=== PATIENT | male | born 1980 | race Two or more races ===

== ENCOUNTER 2025-04-28 19:07 | Inpatient (IN) ==
--- NOTE | 2025-04-28 19:18 | Emergency Department Note ---
Impression & Plan Hydronephrosis with obstructing calculus, Acute right flank pain, Pain in right testicle ED Provider Note NAME: PHU CLIFTON AGE: 44 SEX: M : 1980 ARRIVES VIA: Ambulance INFORMANT: Patient, ED PROVIDER(S): Rafa Britton DO CHIEF COMPLAINT: Testicle pain HPI: The patient is a 44-year-old male who presented to the emergency department from the [facility] for testicle pain. The patient started having symptoms around 1 PM today. He denies having any vomiting but has had nausea as well as back pain. He states the pain goes into his abdomen and into his leg. He denies having any history of similar episodes in the past. The stull installer line was used to evaluate the patient. He denies having any fever. He denies having any hematuria. ROS: See above HPI for pertinent positives & negatives. A total of 10 systems reviewed and were otherwise negative. PAST MEDICAL HISTORY: See Below PAST SURGICAL HISTORY: See Below FAMILY HISTORY: See Below SOCIAL HISTORY: See Below HOME MEDICATIONS: See Below ALLERGIES: See Below VITALS: See Below PHYSICAL EXAMINATION: GENERAL: The patient is awake and alert. The patient is anxious and uncomfortable. EYES: The conjunctivae are clear. The pupils are round and reactive. EARS, NOSE, MOUTH AND THROAT: The nose is without any evidence of any deformity. NECK: The neck is nontender and supple. RESPIRATORY: Normal respiratory effort is noted there is no evidence of wheezing rhonchi or rales CARDIOVASCULAR: Regular rate and rhythm noted there no murmurs rubs or gallops normal S1 normal S2. GASTROINTESTINAL: The abdomen is distended. There is diffuse tenderness on the right side of the abdomen. There is no specific guarding or rigidity. There was no inguinal masses noted. : Testicles are descended bilaterally. There is tenderness on the right side of the right testicle. There is no erythema. BACK: No midline tenderness or or step-off noted range of motion in flexion extension as well as rotation no signs of muscle spasm noted MUSCULOSKELETAL/EXTREMITIES: There is no evidence of gross deformity full range of motion is noted in the hips and shoulders. SKIN: There is no obvious evidence of any rash. There are no petechiae, pallor or cyanosis noted. NEUROLOGIC: Patient is awake alert and oriented x3 MEDICAL DECISION MAKING: The patient is a 44-year-old male who presented to the emergency department from the [facility] for evaluation of testicular pain. The patient was found to have right flank pain as well. Given the language barrier further laboratory and radiographic studies were obtained to ensure there was no other underlying issues. I discussed the patient's laboratory and radiographic studies with him. Ultimately he was found to have signs of a obstructing ureteral calculus. This is likely the cause of patient's pain. He was treated with pain medication and IV fluids in the emergency department. Given the degree of pain the patient was suffering from I [facility] to evaluate the patient in the emergency department for further management and disposition. Triage Nursing notes reviewed. Prior medical records reviewed Vital Signs: reviewed and remarkable for elevated blood pressure. Differential diagnosis: Etiologies such as appendicitis, diverticulitis, obstruction, inflammatory bowel disease, renal colic, PUD, biliary pathology, pancreatitis, mesenteric ischemia, aortic pathology, infections, genitourinary, UTI, perforated viscus, as well as others were entertained. ER treatment provided: See below Diagnostics interpreted by me: ECG: none Cardiac Monitoring: An order was placed for continuous cardiac monitoring. The monitor shows a rate of 80 bpm with sinus rhythm. Laboratory studies: As stated above and show below. Imaging studies: See below. Radiographic imaging was reviewed by myself Consultation(s): I discussed this case with Dr. Mejia [facility] Past Med/Surg History Problem List (Updated 04/28/25 @ 21:31 by Rafa Britton DO) Pain in right testicle (Acute) Acute right flank pain (Acute) Hydronephrosis with obstructing calculus (Acute) Surgical History History of hemorrhoidectomy Social History Smoking Status: Never smoker Communication Tools: IPad Feels Safe at Home: Yes Allergies Allergies Allergy/AdvReac Type Severity Reaction Status Date / Time No Known Allergies Allergy Verified 04/28/25 20:32 Home Meds Home Medications Medication Instructions Recorded Confirmed No Known Home Medications 04/28/25 04/28/25 Results & Data (ED) Vital Signs Vital Signs - 24 hr 04/28/25 19:11 04/28/25 19:13 04/28/25 19:13 Temperature 37.3 C Temperature Source Oral Pulse Rate 68 69 Pulse Rate [Apical] Pulse Rate from SpO2 Sensor Respiratory Rate 16 Respiratory Effort / Characteristics Non-Labored Spontaneous Respiratory Depth Normal Blood Pressure 160/97 H 160/97 H Blood Pressure [Right Arm] Blood Pressure Mean 118 114 Blood Pressure Mean [Right Arm] Pulse Oximetry 97 Oxygen Delivery Method Room Air Sepsis Recent Fever Within 48 Hours No Sepsis New/Unexplained Change in Mental Status No Sepsis Action Taken by Nursing No Action Required 04/28/25 19:13 04/28/25 19:13 04/28/25 19:13 Temperature Temperature Source Pulse Rate Pulse Rate [Apical] Pulse Rate from SpO2 Sensor Respiratory Rate Respiratory Effort / Characteristics Respiratory Depth Blood Pressure 160/97 H 160/97 H 160/97 H Blood Pressure [Right Arm] Blood Pressure Mean 114 114 114 Blood Pressure Mean [Right Arm] Pulse Oximetry Oxygen Delivery Method Sepsis Recent Fever Within 48 Hours Sepsis New/Unexplained Change in Mental Status Sepsis Action Taken by Nursing 04/28/25 19:30 04/28/25 19:39 04/28/25 20:23 Temperature Temperature Source Pulse Rate 77 71 Pulse Rate [Apical] Pulse Rate from SpO2 Sensor Respiratory Rate 12 19 Respiratory Effort / Characteristics Respiratory Depth Blood Pressure 169/122 H Blood Pressure [Right Arm] Blood Pressure Mean 138 Blood Pressure Mean [Right Arm] Pulse Oximetry Oxygen Delivery Method Sepsis Recent Fever Within 48 Hours Sepsis New/Unexplained Change in Mental Status Sepsis Action Taken by Nursing 04/28/25 20:23 04/28/25 20:23 04/28/25 20:23 Temperature Temperature Source Pulse Rate Pulse Rate [Apical] Pulse Rate from SpO2 Sensor Respiratory Rate Respiratory Effort / Characteristics Respiratory Depth Blood Pressure 169/122 H 169/122 H 169/122 H Blood Pressure [Right Arm] Blood Pressure Mean 138 138 138 Blood Pressure Mean [Right Arm] Pulse Oximetry Oxygen Delivery Method Sepsis Recent Fever Within 48 Hours Sepsis New/Unexplained Change in Mental Status Sepsis Action Taken by Nursing 04/28/25 20:23 04/28/25 20:24 04/28/25 20:30 Temperature Temperature Source Pulse Rate 82 80 Pulse Rate [Apical] Pulse Rate from SpO2 Sensor 80 80 Respiratory Rate 19 21 Respiratory Effort / Characteristics Respiratory Depth Blood Pressure 169/122 H Blood Pressure [Right Arm] Blood Pressure Mean 138 Blood Pressure Mean [Right Arm] Pulse Oximetry 98 99 Oxygen Delivery Method Sepsis Recent Fever Within 48 Hours Sepsis New/Unexplained Change in Mental Status Sepsis Action Taken by Nursing 04/28/25 21:01 Temperature Temperature Source Pulse Rate Pulse Rate [Apical] 80 Pulse Rate from SpO2 Sensor Respiratory Rate 16 Respiratory Effort / Characteristics Respiratory Depth Blood Pressure Blood Pressure [Right Arm] 141/73 H Blood Pressure Mean Blood Pressure Mean [Right Arm] 95 Pulse Oximetry Oxygen Delivery Method Sepsis Recent Fever Within 48 Hours Sepsis New/Unexplained Change in Mental Status Sepsis Action Taken by Half-Way Medications Current Medication List: was personally reviewed by me Laboratory Data Attestation: I reviewed the patient's lab results. 04/28/25 19:15 04/28/25 19:15 Lab Results 04/28/25 04/28/25 Range/Units 19:15 20:53 WBC 13.53 H (4.8-10.8) K/ul RBC 5.17 (4.70-6.10) M/uL Hgb 16.2 (14.0-18.0) g/dL Hct 43.8 (42.0-52.0) % MCV 84.7 (80.0-100.0) fL MCH 31.3 (25.0-34.0) pg MCHC 37.0 H (32.0-36.0) g/dL RDW Std Deviation 36.5 (36.4-46.3) fL RDW Coeff of Shaan 11.9 (11.5-14.5) % Plt Count 228 (130-400) K/uL MPV 9.6 (9.4-12.4) fL Immature Gran % (Auto) 0.3 % Neut % (Auto) 85.8 % Lymph % (Auto) 8.8 % [place] % (Auto) 4.1 % Eos % (Auto) 0.4 % Baso % (Auto) 0.6 % Neut # (Auto) 11.61 H (1.40-6.50) K/uL Lymph # (Auto) 1.19 L (1.20-3.40) K/uL [place] # (Auto) 0.56 (0.11-0.59) K/uL Eos # (Auto) 0.05 (0.00-0.50) K/uL Baso # (Auto) 0.08 (0.00-0.20) K/uL Immature Gran # (Auto) 0.04 (0.01-0.20) K/uL Sodium 133 L (136-145) mmol/L Potassium 3.6 (3.5-5.1) mmol/L Chloride 99 (98-107) mmol/L Carbon Dioxide 24 (21-32) mmol/L Anion Gap 10 (3-11) BUN 18 (6-23) mg/dl Creatinine 0.96 (0.6-1.4) mg/dl Est Cr Clr Drug Dosing 99.3 ml/min eGFR 98.72 BUN/Creatinine Ratio 18.8 (10-20) Glucose 152 H (70-99(Fasting)) mg/dl Calcium 9.5 (8.6-10.3) mg/dl Total Bilirubin 1.2 H (0.2-1.0) mg/dl AST 19 (13-39) U/L ALT 21 (7-52) U/L Alkaline Phosphatase 72 (34-104) U/L Total Protein 7.8 (6.0-8.3) gm/dl Albumin 4.3 (3.4-5.0) gm/dl Globulin 3.5 (2.5-4.0) gm/dl Albumin/Globulin Ratio 1.2 (0.9-2) Lipase 38 (11-82) U/L Urine Comment Administered Medications Sodium Chloride (Nss) 1,000 mls @ 50 mls/hr IV .Q20H ONE Stop: 04/29/25 16:28 Last Admin: 04/28/25 20:33 Dose: 999 mls/hr Documented By: VANDANA Discontinued Medications Sodium Chloride (Nss) 500 mls @ 999 mls/hr IV .Q31M STA Stop: 04/28/25 19:44 Last Infusion: 04/28/25 20:18 Dose: Infused Documented By: Admin: 04/28/25 19:23 Dose: 999 mls/hr Documented By: VANDANA Ioversol (Optiray 320 100ml) 93 ml IV ONCE ONE Stop: 04/28/25 20:19 Last Admin: 04/28/25 20:18 Dose: 93 ml Documented By: SOPHIA Ketorolac Tromethamine (Ketorolac Tromethamine 15 Mg/Ml Vial) 10 mg IV NOW ONE Stop: 04/28/25 20:29 Last Admin: 04/28/25 20:33 Dose: 10 mg Documented By: VANDANA Morphine Sulfate (Morphine Sulfate 4 Mg/Ml 1 Ml Carp\Vial) 4 mg IV NOW STA Stop: 04/28/25 19:15 Last Admin: 04/28/25 19:23 Dose: 4 mg Documented By: VANDANA Morphine Sulfate (Morphine Sulfate 4 Mg/Ml 1 Ml Carp\Vial) 4 mg IV NOW STA Stop: 04/28/25 20:29 Last Admin: 04/28/25 20:33 Dose: 4 mg Documented By: VANDANA Ondansetron HCl (Ondansetron Inj 2 Mg/Ml 2 Ml Vial) 4 mg IV NOW STA Stop: 04/28/25 19:15 Last Admin: 04/28/25 19:23 Dose: 4 mg Documented By: VANDANA Imaging Data Attestation: I personally reviewed and interpreted this imaging study as follows: My Impression: CT of the abdomen and pelvis was obtained in the emergency department. My interpretation is no free air or definite bowel obstruction, there was a right ureteral calculus noted, final report below. Radiologist's Impression: Scrotum Ultrasound 04/28/25 19:14 Exam(s): US SCROTAL EXAM: US Scrotum CLINICAL HISTORY: Reason for exam: right sided pain. OTHER: Other Notes: Non specific right sided testicular pain. Rt testicle 4.0 x 2.2 x 2.6 cm w/flow. small hydrocele. Lt testicle 3.9 x 2.2 x 2.8 cm w/flow. Larger hydrocele with debris. Epi head cyst 0.2 cm. TECHNIQUE: Real-time ultrasound of the scrotum with color Doppler and image documentation. COMPARISON: No relevant prior studies available. FINDINGS: Right testicle: Unremarkable. No mass. No torsion. Left testicle: Unremarkable. No mass. No torsion. Epididymides: Unremarkable. Scrotum: Left hydrocele with internal debris. Small right hydrocele. IMPRESSION: Bilateral hydroceles [id number] Electronically signed by: Isreal Kline MD 04/28/25 20:31 PM Abdomen/Pelvis CT 04/28/25 19:15 Exam(s): CT ABDOMEN + PELVIS With Contrast IV Amt: 93ML OPTIRAY 320 EXAM: CT Abdomen and Pelvis With Intravenous Contrast CLINICAL HISTORY: Reason for exam: right flank pain. TECHNIQUE: Axial computed tomography images of the abdomen and pelvis with intravenous contrast. CTDI is 25.45 mGy and DLP is 1389.29 mGy-cm. Automated exposure control was utilized for the study. A dose lowering technique was utilized adhering to the principles of ALARA. CONTRAST: Patient received 93ML OPTIRAY 320 of IV contrast COMPARISON: No relevant prior studies available. FINDINGS: Lung bases: Unremarkable. No mass. No consolidation. ABDOMEN: Liver: Hepatic steatosis. Gallbladder and bile ducts: Unremarkable. No calcified stones. No ductal dilation. Pancreas: Unremarkable. No mass. No ductal dilation. Spleen: Unremarkable. No splenomegaly. Adrenals: Unremarkable. No mass. Kidneys and ureters: Right-sided hydroureteronephrosis secondary to a 0.6 cm proximal right ureteral calculus with periureteral and perinephric stranding. Stomach and bowel: Unremarkable. No obstruction. No mucosal thickening. PELVIS: Appendix: No findings to suggest acute appendicitis. Bladder: Unremarkable. No mass. Reproductive: Unremarkable as visualized. ABDOMEN and PELVIS: Intraperitoneal space: Unremarkable. No free air. No significant fluid collection. Bones/joints: No acute fracture. No dislocation. Soft tissues: Unremarkable. Vasculature: Unremarkable. No abdominal aortic aneurysm. Lymph nodes: Unremarkable. No enlarged lymph nodes. IMPRESSION: Right-sided obstructive uropathy secondary to a 0.5 cm proximal right ureteral calculus. Electronically signed by: Isreal Kline MD 04/28/25 21:04 PM Discharge Plan Visit Data Chief Complaint: Testicular Pain Stated Complaint: L Testicular Pain, Abdominal Pain, UTI ED Provider: Rafa Britton Discharge Problem: Hydronephrosis with obstructing calculus, Acute right flank pain, Pain in right testicle Patient Disposition: Being Evaluated by Hospitalist Condition: Fair Forms Stand Alone Forms: My [employer] Prescriptions Prescriptions: No Action No Known Home Medications Referrals Referrals: PCP,NO [Physician] -
[2025-04-28] MEDS: SODIUM CHLORIDE 0.9% 500 ML IV STA (19:23)
[2025-04-28] MEDS: ONDANSETRON INJ 2 MG/ML 2 ML VIAL IV STA (19:23)
[2025-04-28] MEDS: MoRPHine SULFATE 4 MG/ML 1 ML CARP\\VIAL IV STA ×2 (19:23→20:33)
[2025-04-28 19:29] LABS: Hematocrit (blood only) 43.8 % (42.0-52.0); Hemoglobin 16.2 g/dL (14.0-18.0); Immature Granulocytes # (auto) 0.04 K/uL (0.01-0.20); Immature Granulocytes % (auto) 0.3 %; Mean Corpuscular Hemoglobin 31.3 pg (25.0-34.0); Mean Corpuscular Volume 84.7 fL (80.0-100.0); Platelet Count 228 K/uL (130-400); RDW Standard Deviation 36.5 fL (36.4-46.3); Red Blood Count 5.17 M/uL (4.70-6.10); White Blood Count 13.53 K/ul (4.8-10.8)
[2025-04-28 19:47] LABS: Alanine Aminotransferase 21.0 U/L (7-52); Albumin Globulin Ratio 1.2 (0.9-2); Albumin Level 4.3 gm/dl (3.4-5.0); Alkaline Phosphatase 72.0 U/L (34-104); Anion Gap 10.0 (3-11); Bilirubin,Total 1.2 mg/dl (0.2-1.0); Blood Urea Nitrogen 18.0 mg/dl (6-23); Calcium 9.5 mg/dl (8.6-10.3); Carbon Dioxide 24.0 mmol/L (21-32); Chloride 99.0 mmol/L (98-107); Creatinine Clr Calc Pharmacy 99.3 ml/min; Globulin 3.5 gm/dl (2.5-4.0); Glucose 152.0 mg/dl (70-99(Fasting)); Lipase 38.0 U/L (11-82); Potassium 3.6 mmol/L (3.5-5.1); Sodium 133.0 mmol/L (136-145); Total Protein 7.8 gm/dl (6.0-8.3)
[2025-04-28] MEDS: OPTIRAY 320 100ml IV ONE (20:18)
--- NOTE | 2025-04-28 20:32 | Ultrasound Report ---
Exam(s): US SCROTAL EXAM: US Scrotum CLINICAL HISTORY: Reason for exam: right sided pain. OTHER: Other Notes: Non specific right sided testicular pain. Rt testicle 4.0 x 2.2 x 2.6 cm w/flow. small hydrocele. Lt testicle 3.9 x 2.2 x 2.8 cm w/flow. Larger hydrocele with debris. Epi head cyst 0.2 cm. TECHNIQUE: Real-time ultrasound of the scrotum with color Doppler and image documentation. COMPARISON: No relevant prior studies available. FINDINGS: Right testicle: Unremarkable. No mass. No torsion. Left testicle: Unremarkable. No mass. No torsion. Epididymides: Unremarkable. Scrotum: Left hydrocele with internal debris. Small right hydrocele. IMPRESSION: Bilateral hydroceles [id number] Electronically signed by: Isreal Kline MD 04/28/25 20:31 PM
[2025-04-28] MEDS: SODIUM CHLORIDE 0.9% 1,000 ML IV ONE (20:33)
[2025-04-28] MEDS: KETOROLAC TROMETHAMINE 15 MG/ML VIAL IV ONE (20:33)
[2025-04-28] MEDS ORDERED: PROMETHAZINE 6.25 MG/50.25 ML BAG IV PRN (20:37)
[2025-04-28] MEDS ORDERED: MoRPHine SULFATE 4 MG/ML 1 ML CARP\\VIAL IV PRN (20:37)
--- NOTE | 2025-04-28 21:06 | CT Scan Report ---
Exam(s): CT ABDOMEN + PELVIS With Contrast IV Amt: 93ML OPTIRAY 320 EXAM: CT Abdomen and Pelvis With Intravenous Contrast CLINICAL HISTORY: Reason for exam: right flank pain. TECHNIQUE: Axial computed tomography images of the abdomen and pelvis with intravenous contrast. CTDI is 25.45 mGy and DLP is 1389.29 mGy-cm. Automated exposure control was utilized for the study. A dose lowering technique was utilized adhering to the principles of ALARA. CONTRAST: Patient received 93ML OPTIRAY 320 of IV contrast COMPARISON: No relevant prior studies available. FINDINGS: Lung bases: Unremarkable. No mass. No consolidation. ABDOMEN: Liver: Hepatic steatosis. Gallbladder and bile ducts: Unremarkable. No calcified stones. No ductal dilation. Pancreas: Unremarkable. No mass. No ductal dilation. Spleen: Unremarkable. No splenomegaly. Adrenals: Unremarkable. No mass. Kidneys and ureters: Right-sided hydroureteronephrosis secondary to a 0.6 cm proximal right ureteral calculus with periureteral and perinephric stranding. Stomach and bowel: Unremarkable. No obstruction. No mucosal thickening. PELVIS: Appendix: No findings to suggest acute appendicitis. Bladder: Unremarkable. No mass. Reproductive: Unremarkable as visualized. ABDOMEN and PELVIS: Intraperitoneal space: Unremarkable. No free air. No significant fluid collection. Bones/joints: No acute fracture. No dislocation. Soft tissues: Unremarkable. Vasculature: Unremarkable. No abdominal aortic aneurysm. Lymph nodes: Unremarkable. No enlarged lymph nodes. IMPRESSION: Right-sided obstructive uropathy secondary to a 0.5 cm proximal right ureteral calculus. Electronically signed by: Isreal Kline MD 04/28/25 21:04 PM
--- NOTE | 2025-04-28 21:19 | History & Physical Report ---
Date of Service April 28, 2025 Assessment & Plan (1) Hydronephrosis with obstructing calculus: Plan: Assessment and plan below following discussion of case with ED provider and reviewing patient history/pertinent normal/abnormal diagnostic test results. Obstructive uropathy secondary to kidney stone No sepsis for now Bilateral hydrocele Situational hypertension Hyperglycemia rule out DM Admit to MedSurg Analgesia Flomax trial Strain urine Urology consult re: kidney stone, bilateral hydrocele N.p.o. after midnight in anticipation of procedure Check hemoglobin A1c with a.m. labs DVT prophylaxis. SCDs re: possible procedure Full code Text document was generated using [employer] voice recognition software. It may contain grammatical or spelling errors. Kindly contact undersigned for clarification of any documentation item in question. History of Present Illness Chief Complaint: Abdominal pain Primary Care Provider: [facility] History obtained from patient and records. History obtained from patient via online cath laboratory technician line. No significant medical history. Patient is a resident of [place] who was admitted at the [facility] 4 days ago. This afternoon, patient noted achy lower abdominal pain going to his scrotum. No fever, no chills. No hematuria. No chest pain, no SOB. No headache. No prior episodes. SBP 1 50-1 60s as per medical staff. 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, [place] [employer] Allergies Allergy/AdvReac Type Severity Reaction Status Date / Time No Known Allergies Allergy Verified 04/28/25 20:32 Home Medications Medication Instructions Recorded Confirmed Type No Known Home Medications 04/28/25 04/28/25 History Past Med/Surg History Problem List (Updated 04/28/25 @ 21:31 by Rafa Britton DO) Pain in right testicle (Acute) Acute right flank pain (Acute) Hydronephrosis with obstructing calculus (Acute) Surgical History History of hemorrhoidectomy Social History Smoking Status: Former smoker Hx Alcohol Use: Yes Alcohol type: beer Hx Substance Use: No Preferred Language: Other Communication Ability: interpret Communication Tools: IPad Senior Media Planner Required: Yes Beliefs That Will Affect Care: None Current Living Situation: Other Current Living Situation Comment: pt declined Other Information That Helps Us Care for You: No Feels Safe at Home: Yes Safety Concerns: Feels Safe At This Time Assistive Devices: None Review of Systems Review of Systems: As per HPI, all other systems reviewed and negative Physical Exam Physical Exam: GENERAL: Slightly uncomfortable, pleasant, no respiratory distress SKIN: Normal color, warm HEENT: [place] palpebral conjunctivae, no ptosis, dry buccal mucosa NECK : Supple, no tenderness CHEST : CTA, no tenderness HEART : RRR, no obvious murmurs ABDOMEN: Some distention, hypogastric tenderness EXTREMITIES : No LE swelling/tenderness, palpable pulses, no other conspicuous deformities noted NEUROLOGIC : Coherent, no facial asymmetry, no other gross focality Results & Data Results & Data Vital Signs (Past 12 Hours) Vital Signs Temp Pulse Pulse Resp BP BP Pulse Ox 04/28/25 21:01 80 16 141/73 H 04/28/25 20:30 80 21 99 04/28/25 20:24 82 19 98 04/28/25 20:23 169/122 H 04/28/25 20:23 169/122 H 04/28/25 20:23 169/122 H 04/28/25 20:23 169/122 H 04/28/25 20:23 169/122 H 04/28/25 19:39 71 19 04/28/25 19:30 77 12 04/28/25 19:13 160/97 H 04/28/25 19:13 160/97 H 04/28/25 19:13 160/97 H 04/28/25 19:13 160/97 H 04/28/25 19:13 69 04/28/25 19:11 37.3 C 68 16 160/97 H 97 O2 Del Method 04/28/25 21:01 04/28/25 20:30 04/28/25 20:24 04/28/25 20:23 04/28/25 20:23 04/28/25 20:23 04/28/25 20:23 04/28/25 20:23 04/28/25 19:39 04/28/25 19:30 04/28/25 19:13 04/28/25 19:13 04/28/25 19:13 04/28/25 19:13 04/28/25 19:13 04/28/25 19:11 Room Air Laboratory Results Laboratory Results WBC 13.53 K/ul (4.8-10.8) H 04/28/25 19:15 RBC 5.17 M/uL (4.70-6.10) 04/28/25 19:15 Hgb 16.2 g/dL (14.0-18.0) 04/28/25 19:15 Hct 43.8 % (42.0-52.0) 04/28/25 19:15 MCV 84.7 fL (80.0-100.0) 04/28/25 19:15 MCH 31.3 pg (25.0-34.0) 04/28/25 19:15 MCHC 37.0 g/dL (32.0-36.0) H 04/28/25 19:15 RDW Std Deviation 36.5 fL (36.4-46.3) 04/28/25 19:15 RDW Coeff of Shaan 11.9 % (11.5-14.5) 04/28/25 19:15 Plt Count 228 K/uL (130-400) 04/28/25 19:15 MPV 9.6 fL (9.4-12.4) 04/28/25 19:15 Immature Gran % (Auto) 0.3 % 04/28/25 19:15 Neut % (Auto) 85.8 % 04/28/25 19:15 Lymph % (Auto) 8.8 % 04/28/25 19:15 [place] % (Auto) 4.1 % 04/28/25 19:15 Eos % (Auto) 0.4 % 04/28/25 19:15 Baso % (Auto) 0.6 % 04/28/25 19:15 Neut # (Auto) 11.61 K/uL (1.40-6.50) H 04/28/25 19:15 Lymph # (Auto) 1.19 K/uL (1.20-3.40) L 04/28/25 19:15 [place] # (Auto) 0.56 K/uL (0.11-0.59) 04/28/25 19:15 Eos # (Auto) 0.05 K/uL (0.00-0.50) 04/28/25 19:15 Baso # (Auto) 0.08 K/uL (0.00-0.20) 04/28/25 19:15 Immature Gran # (Auto) 0.04 K/uL (0.01-0.20) 04/28/25 19:15 Sodium 133 mmol/L (136-145) L 04/28/25 19:15 Potassium 3.6 mmol/L (3.5-5.1) 04/28/25 19:15 Chloride 99 mmol/L (98-107) 04/28/25 19:15 Carbon Dioxide 24 mmol/L (21-32) 04/28/25 19:15 Anion Gap 10 (3-11) 04/28/25 19:15 BUN 18 mg/dl (6-23) 04/28/25 19:15 Creatinine 0.96 mg/dl (0.6-1.4) 04/28/25 19:15 Est Cr Clr Drug Dosing 99.3 ml/min 04/28/25 19:15 eGFR 98.72 04/28/25 19:15 BUN/Creatinine Ratio 18.8 (10-20) 04/28/25 19:15 Glucose 152 mg/dl (70-99(Fasting)) H 04/28/25 19:15 Calcium 9.5 mg/dl (8.6-10.3) 04/28/25 19:15 Total Bilirubin 1.2 mg/dl (0.2-1.0) H 04/28/25 19:15 AST 19 U/L (13-39) 04/28/25 19:15 ALT 21 U/L (7-52) 04/28/25 19:15 Alkaline Phosphatase 72 U/L (34-104) 04/28/25 19:15 Total Protein 7.8 gm/dl (6.0-8.3) 04/28/25 19:15 Albumin 4.3 gm/dl (3.4-5.0) 04/28/25 19:15 Globulin 3.5 gm/dl (2.5-4.0) 04/28/25 19:15 Albumin/Globulin Ratio 1.2 (0.9-2) 04/28/25 19:15 Lipase 38 U/L (11-82) 04/28/25 19:15 Urine Comment 04/28/25 20:53 Impressions Scrotum Ultrasound 04/28/25 19:14 Exam(s): US SCROTAL EXAM: US Scrotum CLINICAL HISTORY: Reason for exam: right sided pain. OTHER: Other Notes: Non specific right sided testicular pain. Rt testicle 4.0 x 2.2 x 2.6 cm w/flow. small hydrocele. Lt testicle 3.9 x 2.2 x 2.8 cm w/flow. Larger hydrocele with debris. Epi head cyst 0.2 cm. TECHNIQUE: Real-time ultrasound of the scrotum with color Doppler and image documentation. COMPARISON: No relevant prior studies available. FINDINGS: Right testicle: Unremarkable. No mass. No torsion. Left testicle: Unremarkable. No mass. No torsion. Epididymides: Unremarkable. Scrotum: Left hydrocele with internal debris. Small right hydrocele. IMPRESSION: Bilateral hydroceles [id number] Electronically signed by: Isreal Kline MD 04/28/25 20:31 PM Abdomen/Pelvis CT 04/28/25 19:15 Exam(s): CT ABDOMEN + PELVIS With Contrast IV Amt: 93ML OPTIRAY 320 EXAM: CT Abdomen and Pelvis With Intravenous Contrast CLINICAL HISTORY: Reason for exam: right flank pain. TECHNIQUE: Axial computed tomography images of the abdomen and pelvis with intravenous contrast. CTDI is 25.45 mGy and DLP is 1389.29 mGy-cm. Automated exposure control was utilized for the study. A dose lowering technique was utilized adhering to the principles of ALARA. CONTRAST: Patient received 93ML OPTIRAY 320 of IV contrast COMPARISON: No relevant prior studies available. FINDINGS: Lung bases: Unremarkable. No mass. No consolidation. ABDOMEN: Liver: Hepatic steatosis. Gallbladder and bile ducts: Unremarkable. No calcified stones. No ductal dilation. Pancreas: Unremarkable. No mass. No ductal dilation. Spleen: Unremarkable. No splenomegaly. Adrenals: Unremarkable. No mass. Kidneys and ureters: Right-sided hydroureteronephrosis secondary to a 0.6 cm proximal right ureteral calculus with periureteral and perinephric stranding. Stomach and bowel: Unremarkable. No obstruction. No mucosal thickening. PELVIS: Appendix: No findings to suggest acute appendicitis. Bladder: Unremarkable. No mass. Reproductive: Unremarkable as visualized. ABDOMEN and PELVIS: Intraperitoneal space: Unremarkable. No free air. No significant fluid collection. Bones/joints: No acute fracture. No dislocation. Soft tissues: Unremarkable. Vasculature: Unremarkable. No abdominal aortic aneurysm. Lymph nodes: Unremarkable. No enlarged lymph nodes. IMPRESSION: Right-sided obstructive uropathy secondary to a 0.5 cm proximal right ureteral calculus. Electronically signed by: Isreal Kline MD 04/28/25 21:04 PM
[2025-04-28] MEDS ORDERED: LORazepam 0.5 MG TAB PO PRN (21:28)
[2025-04-28] MEDS: TAMSULOSIN HCL 0.4 MG CAP PO STA (21:42)
[2025-04-28 21:44] LABS: Appearance Urine Turbid (Clear); Bacteria Urine Automated None Seen (None Seen); Cast Urine Automated 0-2 /lpf (0-2); Epithelial Cell Urine Auto 0-2 /hpf (0-2); Glucose Urine UA Negative (Negative); RBC Urine Automated >20 /hpf (0-2)
[2025-04-28] MEDS ORDERED: POLYETHYLENE (MIRALAX) 17 GM PACK PO PRN (21:57)
[2025-04-28] MEDS: DOCUSATE SODIUM/SENNA 50/8.6MG TAB PO SCH (22:09)
[2025-04-29 07:19] LABS: Hematocrit (blood only) 39.9 % (42.0-52.0); Hemoglobin 14.1 g/dL (14.0-18.0); Immature Granulocytes # (auto) 0.01 K/uL (0.01-0.20); Immature Granulocytes % (auto) 0.1 %; Mean Corpuscular Hemoglobin 30.2 pg (25.0-34.0); Mean Corpuscular Volume 85.4 fL (80.0-100.0); Platelet Count 205 K/uL (130-400); RDW Standard Deviation 37.8 fL (36.4-46.3); Red Blood Count 4.67 M/uL (4.70-6.10); White Blood Count 7.96 K/ul (4.8-10.8)
[2025-04-29 07:40] LABS: Anion Gap 9.0 (3-11); Blood Urea Nitrogen 14.0 mg/dl (6-23); Calcium 8.8 mg/dl (8.6-10.3); Carbon Dioxide 27.0 mmol/L (21-32); Chloride 103.0 mmol/L (98-107); Creatinine Clr Calc Pharmacy 112.5 ml/min; Glucose 99.0 mg/dl (70-99(Fasting)); Potassium 3.4 mmol/L (3.5-5.1); Sodium 139.0 mmol/L (136-145)
[2025-04-29] MEDS ORDERED: MoRPHine SULFATE 4 MG/ML 1 ML CARP\\VIAL IV PRN (08:06)
[2025-04-29 08:36] LABS: Hemoglobin A1C 5.7 % (4.5-5.6)
[2025-04-29] MEDS: POTASSIUM CHLORIDE 10 MEQ TABCR PO ONE (09:00)
[2025-04-29] MEDS: NSS + 20MEQ KCL 20 MEQ/1,000 ML BAG IV SCH (09:01)
--- NOTE | 2025-04-29 12:59 | Urology Consultation ---
Date of Consultation April 29, 2025 Assessment & Plan (1) Hydronephrosis with obstructing calculus: (2) Acute right flank pain: (3) Pain in right testicle: Plan The patient admitted with severe pain secondary to obstructive stone approximately 6 mm stone in the proximal/mid ureter and significant perinephric stranding. Patient originally from [facility] and has limited [place] language/understanding. A translation service was utilized through an iPad. Patient independently assessed, examined, interviewed, and evaluated. Patient's vitals and labs were all reviewed. Pertinent values in the HPI and plan section. White count 7.96. Hemoglobin 14.1. Creatinine 0.92. Vitals include blood pressure 104/62 pulse 75 respirations 14 temperature 36.8. Patient has remained afebrile. Oxygen saturation 95% on room air. Imaging was reviewed interpreted by myself. Significant moderate to severe perinephric stranding with inflammation along the ureter and moderate to severe hydronephrosis. Stone appears to be in the mid/proximal ureter. Appears to cause considerable obstructive issues. Otherwise agree with read. Vitals were reviewed. Patient additionally had undergone scrotal ultrasound which found bilateral hydroceles. Discussed findings extensively with patient. Patient is currently detained. The guards from the facility were also present and updated with the findings and the plan. Reviewed with nurse nursing. Additionally coordinated with the translation service. Patient's complicated medical and surgical history was reviewed and summarized above. Patient's surgical, medical, social, and family history were all reviewed with pertinent values as above. Discussed patient's current diagnosis as well as concerns and issues. Reviewed different options moving forward. Discussed potential risks and benefits as well as possible options and concerns. Reviewed potential surgical options and interventions. Discussed potential issues and concerns related to intervention. Risk and benefits were discussed extensively with patient and any available family. Discussed potential risks related to anesthesia. Discussed risks of bleeding infection and injury. Discussed concerns related to the degree of obstruction and concerns with possible obstruction. Would be approximately 50-50 chance of passage spontaneously. Patient is not experiencing major bleeding. Does have severe episodes of pain. Did discuss maximum expulsion therapy and supportive care for attempted passage. The patient is unable to pass a stone may need to consider moving forward with intervention. Additionally based on the degree of hydronephrosis and perinephr ic stranding may need to consider moving forward with intervention if stone is not mobilizing or changing position. Will be a potential risk for significant infection with obstruction. Could consider possible stent placement for stone treatment based on patient's findings. Reviewed possible surgical concerns and issues. Reviewed options moving forward. Reviewed options possibly move forward with stone treatment depending on patient's clinical course. If patient does develop severe fevers or other issues that would require urgent or emergent stent he may need to consider moving forward that alone however if possible would consider possibly trying to treat the stone. Will plan to observe with reassessment as needed moving forward. Patient complicated medical and surgical history is reviewed and summarized above all imaging was reviewed all labs and vitals reviewed with pertinent positive negatives in HPI or plan section. History of Present Illness Attending Physician: Aron Alarcon MD History of Present Illness New consultation for patient with stone, discomfort, obstruction, and ill feelings. Patient from [facility]. Does be very limited in [place]. A translating device was utilized for the patient encounter. Patient developed sudden onset of pain into the testicle. Was additionally having discomfort in the abdomen and flank going down and radiating into groin and back in waves comes and goes. Can be severe at times. Patient has never had stones before but has had pain in a similar fashion. Has occurred in the abdomen in the past. Discussed and reviewed patient's family history for any history of stone disease. No known history. Also, discussed patient's medical surgery history especially related to any history of urinary issues or stone disease. Patient was admitted and is undergoing observation. Allergies Allergy/AdvReac Type Severity Reaction Status Date / Time No Known Allergies Allergy Verified 04/28/25 20:32 Home Medications Medication Instructions Recorded Confirmed Type No Known Home Medications 04/28/25 04/28/25 History Patient History Surgical History History of hemorrhoidectomy Social History Smoking Status: Former smoker Hx Alcohol Use: Yes Alcohol type: beer Hx Substance Use: No Preferred Language: Other Communication Ability: interpret Communication Tools: IPad [place] Polisher Operator Required: Yes Beliefs That Will Affect Care: None Current Living Situation: Other Current Living Situation Comment: pt declined Other Information That Helps Us Care for You: No Feels Safe at Home: Yes Safety Concerns: Feels Safe At This Time Assistive Devices: None Review of Systems Review of Systems: All systems reviewed & are unremarkable except as noted in HPI & below Physical Exam Physical Exam: General: Alert and oriented x 3 in no acute distress. Restrained HEENT: Normocephalic Atraumatic. Inspection normal. Cranial Nerves 2-12 Grossly intact. Nares are clear. Neck is supple. Normal inspection of face. Normal inspection of neck. Neurologic: No deficits on inspection. Baseline for motor function and sensory. Psychologic: Normal affect. Respiratory: Nonlabored. No use of accessory muscles. No tachypnea or dyspnea. Cardiovascular: No tachycardia Skin: [place] and Dry. No rashes or visible lesions. Extremities: Moving without issues. No motor deficits on inspection Lymphatics: No edema Abdomen: Soft Non-distended. No rebound or guarding. Results & Data Vital Signs (Past 12 Hours) Vital Signs Temp Pulse Resp BP Pulse Ox O2 Del Method 04/29/25 07:17 36.8 C 75 14 104/62 95 Room Air PG Care Time/CCT Total # of Minutes Spent Total Time Spent with Patient: Total time spent is greater than 50% in coordination of care (as documented) at patient's floor/unit and/or counseling patient: Coding Level of Care Code 88752 OFFICE CONSULT LVL Diagnoses Hydronephrosis with obstructing calculus N13.2 Acute right flank pain R10.A1 Pain in right testicle N50.811
[2025-04-29] MEDS ORDERED: cefTRIAXone SODIUM 1,000 MG/50 ML BAG IV SCH (13:15)
[2025-04-29] MEDS: cefTRIAXone SODIUM 2,000 MG/50 ML BAG IV SCH (14:02)
--- NOTE | 2025-04-29 14:42 | Hospitalist Progress Note ---
Date of Service April 29, 2025 Assessment & Plan (1) Hydronephrosis with obstructing calculus: Plan: Right Ureteral calculus Obstructive uropathy --CT ABD:Right-sided obstructive uropathy secondary to a 0.5 cm proximal right ureteral calculus. Continue IV fluids, Flomax Empirically on IV Rocephin Appreciate urology input N.p.o. after midnight for definitive stone treatment Strain urine Bilateral hydrocele Follow-up as outpatient Prediabetes HbA1c 5.7 Situational hypertension Likely due to pain Monitor blood pressure DVT Px: SCDs re: possible procedure CODE STATUS Full code Admission and Anticipated Discharge Date Admission Date: April 28, 2025 Subjective Patient is seen and examined at bedside Difficult historian due to language barrier Denies any hematuria, flank pain, nausea, vomiting, chest pain, dyspnea Discussed with urology today Review of Systems Review of Systems: All systems reviewed & are unremarkable except as noted in Subjective Physical Exam Physical Exam: Physical Exam: Vitals signs as noted above General Appearance:Moderately built and nourished, no apparent distress Head: normocephalic, Atraumatic Eyes: normal inspection, EOMI Neck: supple, Trachea midline Respiratory/Chest: Normal breath sounds, CTA, No accessory muscle use Cardiovascular: S1, S2, No murmur Abdomen/GI:Soft, Non tender, Bowel sounds present Extremities/Musculoskeletal:normal inspection, no edema Neurologic/Psych:AAOX3, grossly no focal neurological deficits Skin: normal color, warm Results & Data Results & Data Vital Signs (Past 12 Hours) Vital Signs Temp Pulse Resp BP Pulse Ox O2 Del Method 04/29/25 07:17 36.8 C 75 14 104/62 95 Room Air Laboratory Results Short CBC 04/28/25 04/29/25 Range/Units 19:15 06:21 WBC 13.53 H 7.96 (4.8-10.8) K/ul Hgb 16.2 14.1 (14.0-18.0) g/dL Hct 43.8 39.9 L (42.0-52.0) % Plt Count 228 205 (130-400) K/uL BMP 04/28/25 04/29/25 19:15 06:21 Sodium 133 L 139 Potassium 3.6 3.4 L Chloride 99 103 Carbon Dioxide 24 27 BUN 18 14 Creatinine 0.96 0.92 Glucose 152 H 99 Calcium 9.5 8.8 Liver Function 11/15/25 Range/Units 19:15 Total Bilirubin 1.2 H (0.2-1.0) mg/dl AST 19 (13-39) U/L ALT 21 (7-52) U/L Alkaline Phosphatase 72 (34-104) U/L Albumin 4.3 (3.4-5.0) gm/dl Urine 04/28/25 Range/Units 20:53 Urine Color Yellow Urine Appearance Turbid A (Clear) Urine pH 5.5 (4.5-7.5) Ur Specific [place] > 1.045 H (1.000-1.030) Urine Protein 1+ H (Negative) Urine Glucose (UA) Negative (Negative)
[2025-04-29] MEDS: TAMSULOSIN HCL 0.4 MG CAP PO SCH (20:38)
[2025-04-30 07:40] LABS: Hematocrit (blood only) 40.2 % (42.0-52.0); Hemoglobin 14.2 g/dL (14.0-18.0); Mean Corpuscular Hemoglobin 30.7 pg (25.0-34.0); Mean Corpuscular Volume 86.8 fL (80.0-100.0); Platelet Count 203 K/uL (130-400); RDW Standard Deviation 39.7 fL (36.4-46.3); Red Blood Count 4.63 M/uL (4.70-6.10); White Blood Count 5.44 K/ul (4.8-10.8)
[2025-04-30] MEDS ORDERED: DEXAMETHASONE SOD INJ 4 MG/ML VIAL ONE ×2 (07:53)
[2025-04-30] MEDS ORDERED: PROPOFOL IV EMULSION 10 MG/ML 20 ML VIAL IV ONE (07:53)
[2025-04-30] MEDS ORDERED: ONDANSETRON INJ 2 MG/ML 2 ML VIAL ONE (07:53)
[2025-04-30] MEDS ORDERED: LIDOCAINE 2% 2 ML VIAL/AMP(20MG/ML) INFIL ONE (07:53)
[2025-04-30 07:57] LABS: Anion Gap 7.0 (3-11); Blood Urea Nitrogen 10.0 mg/dl (6-23); Calcium 8.6 mg/dl (8.6-10.3); Carbon Dioxide 27.0 mmol/L (21-32); Chloride 107.0 mmol/L (98-107); Creatinine Clr Calc Pharmacy 121.8 ml/min; Glucose 88.0 mg/dl (70-99(Fasting)); Potassium 3.5 mmol/L (3.5-5.1); Sodium 141.0 mmol/L (136-145)
--- NOTE | 2025-04-30 08:31 | Urology Progress Note ---
Date of Service April 30, 2025 Assessment & Plan (1) Acute right flank pain: (2) Hydronephrosis with obstructing calculus: (3) Pain in right testicle: Plan Patient with right 6 mm obstructing stone with severe perinephric stranding with significant pain discomfort and pain rating down into the testicle. Patient has limited [place] language. A welfare eligibility interviewer was utilized. Had discussed potential options for intervention due to persistently obstructed stone with no sign of passage or improvement plan to move forward with likely intervention. Did discuss stone treatment for stent placement. Reviewed risks and benefits. Risks and benefits discussed at length for procedure. These include bleeding, infection, injury to surrounding tissues or organs, and risks associated with anesthesia. Patient states understanding and agrees to proceed. Will sign consent and proceed. Plan for cystoscopy with right ureteroscopy and possible stone treatment Admission and Anticipated Discharge Date Admission Date: April 28, 2025 Subjective Patient admitted with stone and discomfort. Patient for [facility]. Has limited comprehension of Guatemalan. X Ray Consultant was utilized. Patient is afebrile. Significant perinephric stranding with inflammation of the kidney and 6 mm obstructing stone. Has been undergoing maximum expulsion therapy with oral medications, IV medications, IV fluids, and oral intake. Has not had significant relief of pain. Continues to have testicular pain pain going into the flank and has not seen blood or passed stone material. Has not developed severe vomiting or other issues. Has not experienced fever or chills. Patient was made n.p.o. at midnight. Is tolerating IV fluids. No severe episodes or major changes. Patient does not believe the passed a stone. Has not passed a large amount of blood or debris that may be the stone. Review of Systems Review of Systems: All systems reviewed & are unremarkable except as noted in HPI & below Physical Exam Physical Exam: General: Alert in no acute distress. HEENT: Normocephalic Atraumatic. Inspection normal. Cranial Nerves 2-12 Grossly intact. Normal inspection of face. Normal inspection of neck. Psychologic: Normal affect. Respiratory: Nonlabored. No use of accessory muscles. No tachypnea or dyspnea. Cardiovascular: No tachycardia Skin: [place] and Dry. No rashes or visible lesions. Extremities/Lymphatics: No edema Abdomen: Soft Non-distended. No rebound or guarding. Results & Data Vital Signs (Past 12 Hours) Vital Signs Temp Pulse Resp BP Pulse Ox O2 Del Method 04/30/25 08:01 36.5 C 67 20 110/67 95 Room Air 04/29/25 23:24 36.8 C 70 14 111/64 96 Room Air PG Care Time/CCT Total # of Minutes Spent Total Time Spent with Patient: Total time spent is greater than 50% in coordination of care (as documented) at patient's floor/unit and/or counseling patient: Coding Level of Care Code 89482 SUB INP/OBS CARE 3/50MIN Diagnoses Acute right flank pain R10.A1 Hydronephrosis with obstructing calculus N13.2 Pain in right testicle N50.811
[2025-04-30] MEDS ORDERED: MIDAZOLAM HCL 1 MG/ML 2ML VIAL ONE (08:34)
[2025-04-30] MEDS ORDERED: ONDANSETRON INJ 2 MG/ML 2 ML VIAL IV PRN (08:39)
[2025-04-30] MEDS ORDERED: ATROPINE SULFATE 0.1 MG/ML 10ML SYR IV PRN (08:39)
--- NOTE | 2025-04-30 08:39 | Anesthesiology Consultation ---
Date of Service April 30, 2025 Assessment & Plan Chart Review Chart Review: Acceptable Risk for Surgery and Patient NOT seen in Pre Admission Testing Consults Requested none ASA ASA2 Proposed Anesthesia Anesthesia Type: General Risk / Benefits Reviewed With: PT / POA / Parent / Guardian, Accepts Plan and Informed Consent Obtained Additional Comments: consent obtained via an [employer] pump servicer on the ipad all questions amswered Additional Notes pt informed that he had water at 7:30 am. will plan to hold until 2 hrs after clear liquids History Surgery Operation Date: 04/30/25 09:10 Proposed Procedures p Cystoscopy, Ureteronephroscopy, Laser Lithotripsy, Right Stent Placement - River Bernardo DO Height/Weight Height: 5 ft 10 in Weight: 88.768 kg Allergies Allergy/AdvReac Type Severity Reaction Status Date / Time No Known Allergies Allergy Verified 04/28/25 20:32 Medications Home Medications Medication Instructions Recorded Confirmed Last Taken No Known Home Medications 04/28/25 04/30/25 Unknown Active Medications Generic Name Dose Route Start Last Admin Trade Name Sumitq PRN Reason Stop Dose Admin Ceftriaxone Sodium 2,000 mg in 50 mls @ 100 mls/hr 04/29/25 13:15 04/29/25 14:39 Rocephin IV 05/09/25 13:14 Infused Q24H YUNIOR Infusion Senna/Docusate Sodium 1 tab 04/28/25 22:00 04/29/25 07:39 Docusate Sodium/Senna 50/8.6mg Tab PO 05/28/25 21:59 1 tab QAM YUNIOR Administration Tamsulosin HCl 0.4 mg 04/29/25 21:00 04/29/25 20:38 Tamsulosin Hcl 0.4 Mg Cap PO 05/29/25 20:59 0.4 mg HS YUNIOR Administration Past Surgical History Surgical History History of hemorrhoidectomy Social History Smoking Status: Former smoker Hx Alcohol Use: Yes Alcohol type: beer alcohol intake frequency: a few times a week Hx Substance Use: No Physical Exam Vital Signs Last Vital Signs Temp 36.5 C 04/30/25 08:01 Pulse 67 04/30/25 08:01 Resp 20 04/30/25 08:01 BP 110/67 04/30/25 08:01 Pulse Ox 95 04/30/25 08:01 O2 Del Method Room Air 04/30/25 08:01 Testing Laboratory Results 04/30/25 06:49 04/30/25 06:49 Hemoglobin A1c 5.7 % (4.5-5.6) H 04/29/25 06:21 Urine Color Yellow 04/28/25 20:53 Urine Appearance Turbid (Clear) A 04/28/25 20:53 Urine pH 5.5 (4.5-7.5) 04/28/25 20:53 Ur Specific [place] > 1.045 (1.000-1.030) H 04/28/25 20:53 Urine Protein 1+ (Negative) H 04/28/25 20:53 Urine Glucose (UA) Negative (Negative) 04/28/25 20: Urine Ketones 3+ (Negative) H 04/28/25 20:53 Urine Nitrite Negative (Negative) 04/28/25 20:53 Ur Leukocyte Esterase Negative (Negative) 04/28/25 20:53 Urine WBC (Auto) 6-10 /hpf (0-5) H 04/28/25 20:53 Urine RBC (Auto) >20 /hpf (0-2) H 04/28/25 20:53 U Hyaline Cast (Auto) 0-2 /lpf (0-2) 04/28/25 20:53 U Epithel Cells (Auto) 0-2 /hpf (0-2) 04/28/25 20:53 Urine Bacteria (Auto) None Seen (None Seen) 04/28/25 20:53
[2025-04-30] MEDS ORDERED: ceFAZolin 330 MG/ML 1 GM VIAL ONE ×2 (09:43)
[2025-04-30] MEDS: DIATRIZOATE MEGLUMINE 30% 100ML VIAL INSTIL ONE (10:00)
--- NOTE | 2025-04-30 10:26 | Operative Report ---
PG Post Operative Report Pre & Post Diagnosis Operation Date: 04/30/25 09:10 Pre-Op Diagnosis: Right Hydronephrosis with obstructing calculus Post-Op Diagnosis: Right Hydronephrosis with obstructing calculus I identified the patient and participated in the time-out.: Yes Procedure Operation Date: 04/30/25 09:10 Actual Procedures Cystoscopy with Right Ureteroscopy, Laser Lithotripsy, retrograde pyelogram, ureteral dilation, and right Stent Placement(Right) - River Bernardo DO Surgeon River Bernardo, II, DO Grout Machine Tender None Estimated Blood Loss 1 Findings Consistent with Post-Op Diagnosis Hydronephrosis on the right. Narrowing in the mid ureter. Stricture dilated. Stone destroyed to dust and small fragments and larger fragments removed. Specimens None Drains 6 Fr Multilength on TETHER Anesthesia Type General Complications none Disposition Disposition: Recovery Room Indications Patient with bothersome stones. Risks and benefits discussed at length. Description of Procedure Patient was consented and brought back to the operating room. Patient was placed under anesthesia in the supine position and moved to the dorsal lithotomy position. Patient was prepped and draped in the regular sterile fashion. A time out was completed identifying the correct patient and procedure. A 30degree Cystoscope was placed into the bladder and the entire bladder was examined. The UO's were identified. The UO was cannulized with a catheter and a retrograde pyelogram was completed. A wire was then placed. A ureteral access sheath and second safety wire was placed. The flexible ureteroscope was taken into the ureter. Rod stricture in the mid ureter was discovered it was dilated. The entire ureter and renal pelvis were examined. The stones were identified. A laser fiber was selected and the stones were pulverized to dust and small fragments. No residual stone or small pieces were discovered. The stone had been pulverized to dust. The entire area was once again examined. No residual large fragments or areas of concern were noted. The scope was slowly removed with the wire left in place. Contrast was placed through the scope for a pyelogram to assist in stent placement. The entire ureter was examined as the scope was slowly removed. No obstructions or other areas of concern were noted. With the wire in place, a 6 Fr Double J stent was placed. The stent was left on a tether. It was confirmed with fluoroscopy. With the stent in place, the bladder was emptied. The scope was removed. The tether was secured to the penile tissues with a Tegaderm. The patient was cleaned, aroused from anesthesia, and transferred to the pacu in stable condition having tolerated the procedure well with no complications. I was present and participated in all aspects of the procedure. The patient will be monitored in the PACU until transferred. Plan to remove Tegaderm and pull stent in approximately 2 to 5 days. May have blood in urine. May have discomfort. Will have patient return if any major issues with fever or bleeding. I attest to the content of the Intraoperative Record and any orders documented therein. Any exceptions are noted below.
--- NOTE | 2025-04-30 10:36 | Fluoroscopy Report ---
FL retrograde includes kub CLINICAL HISTORY: ADD ON RETROGRADE COMPARISON STUDY: None FLUOROSCOPY TIME: 96 seconds FLUOROSCOPY IMAGES: 13 EXPOSURE DOSE: 27 mGy FINDINGS: Fluoroscopy was provided for urologic procedure. IMPRESSION: Intraoperative fluoroscopy. ACT 112: Negative or not required by law. Electronically signed by: Lito Daly M.D. 04/30/2025 10:34 AM
--- NOTE | 2025-04-30 10:51 | Anesthesiology Progress Note ---
Date of Service April 30, 2025 Anesthesia Post Procedure Vital Signs Vital Signs: Temp Pulse Pulse Resp BP Pulse Ox O2 Del Method 04/30/25 10:40 76 12 132/82 100 Oxymask 04/30/25 10:30 78 14 124/85 99 Oxymask 04/30/25 10:22 36.2 C L 76 18 112/80 96 Oxymask 04/30/25 08:31 37.0 C 75 18 119/71 98 Room Air 04/30/25 08:01 36.5 C 67 20 110/67 95 Room Air 04/29/25 23:24 36.8 C 70 14 111/64 96 Room Air 04/29/25 15:21 36.9 C 89 16 108/65 96 Room Air O2 Flow Rate 04/30/25 10:40 7 04/30/25 10:30 7 04/30/25 10:22 7 04/30/25 08:31 04/30/25 08:01 04/29/25 23:24 04/29/25 15:21 Pain Intensity Right Testicles: Pain Intensity: 0 Transfer of Care Handoff Completed per policy Notes Mental Status: alert / awake / arousable Patient Amnestic to Procedure: Yes Nausea / Vomiting: adequately controlled Pain: adequately controlled Airway Patency, RR, SpO2: stable & adequate BP & HR: stable & adequate Hydration State: stable & adequate Anesthetic Complications: no major complications apparent
[2025-04-30] MEDS: ACETAMINOPHEN 325 MG TAB PO PRN (12:46)
[2025-04-30] MEDS: NSS + 20MEQ KCL 20 MEQ/1,000 ML BAG IV SCH (13:06)
--- NOTE | 2025-04-30 14:59 | Hospitalist Progress Note ---
Date of Service April 30, 2025 Assessment & Plan (1) Hydronephrosis with obstructing calculus: Plan: Right Ureteral calculus Obstructive uropathy --CT ABD:Right-sided obstructive uropathy secondary to a 0.5 cm proximal right ureteral calculus. --S/P Cystoscopy with Right Ureteroscopy, Laser Lithotripsy, retrograde pyelogram, ureteral dilation, and right Stent Placement(Right) by Dr. Bernardo on 04/30/2025 Continue IV fluids, Flomax Empirically on IV Rocephin Appreciate urology input Plan to transition to oral antibiotics on discharge to complete 5-day course postprocedure Likely plan to discharge tomorrow Needs follow-up with urology on discharge Bilateral hydrocele Follow-up as outpatient Prediabetes HbA1c 5.7 Situational hypertension Likely due to pain Blood pressure stable today Monitor DVT Px: SCDs re: possible procedure CODE STATUS Full code Admission and Anticipated Discharge Date Admission Date: April 28, 2025 Subjective Patient is seen and examined at bedside States having dizziness associate with some headache today after the procedure Discussed with urology today No other complaints today Denies any abdominal pain, hematuria, nausea, vomiting, chest pain, dyspnea Review of Systems Review of Systems: All systems reviewed & are unremarkable except as noted in Subjective Physical Exam Physical Exam: Physical Exam: Vitals signs as noted above General Appearance:Moderately built and nourished, no apparent distress Head: normocephalic, Atraumatic Eyes: normal inspection, EOMI Neck: supple, Trachea midline Respiratory/Chest: Normal breath sounds, CTA, No accessory muscle use Cardiovascular: S1, S2, No murmur Abdomen/GI:Soft, Non tender, Bowel sounds present Extremities/Musculoskeletal:normal inspection, no edema Neurologic/Psych:AAOX3, grossly no focal neurological deficits Skin: normal color, warm Results & Data Results & Data Vital Signs (Past 12 Hours) Vital Signs Temp Pulse Pulse Resp BP Pulse Ox O2 Del Method 04/30/25 12:47 36.6 C 74 18 116/78 96 Room Air 04/30/25 11:12 36.7 C 74 18 131/83 97 Room Air 04/30/25 10:50 37.1 C 69 17 128/90 98 Room Air 04/30/25 10:40 76 12 132/82 100 Oxymask 04/30/25 10:30 78 14 124/85 99 Oxymask 04/30/25 10:22 36.2 C L 76 18 112/80 96 Oxymask 04/30/25 08:31 37.0 C 75 18 119/71 98 Room Air 04/30/25 08:01 36.5 C 67 20 110/67 95 Room Air O2 Flow Rate 04/30/25 12:47 04/30/25 11:12 04/30/25 10:50 04/30/25 10:40 7 04/30/25 10:30 7 04/30/25 10:22 7 04/30/25 08:31 04/30/25 08:01 Laboratory Results Short CBC 04/30/25 Range/Units 06:49 WBC 5.44 (4.8-10.8) K/ul Hgb 14.2 (14.0-18.0) g/dL Hct 40.2 L (42.0-52.0) % Plt Count 203 (130-400) K/uL BMP 04/30/25 06:49 Sodium 141 Potassium 3.5 Chloride 107 Carbon Dioxide 27 BUN 10 Creatinine 0.85 Glucose 88 Calcium 8.6
[2025-05-01 07:42] LABS: Hematocrit (blood only) 43.7 % (42.0-52.0); Hemoglobin 15.5 g/dL (14.0-18.0); Mean Corpuscular Hemoglobin 30.5 pg (25.0-34.0); Mean Corpuscular Volume 85.9 fL (80.0-100.0); Platelet Count 218 K/uL (130-400); RDW Standard Deviation 38.4 fL (36.4-46.3); Red Blood Count 5.09 M/uL (4.70-6.10); White Blood Count 9.32 K/ul (4.8-10.8)
[2025-05-01 08:02] LABS: Anion Gap 9.0 (3-11); Blood Urea Nitrogen 10.0 mg/dl (6-23); Calcium 9.2 mg/dl (8.6-10.3); Carbon Dioxide 28.0 mmol/L (21-32); Chloride 103.0 mmol/L (98-107); Creatinine Clr Calc Pharmacy 117.7 ml/min; Glucose 101.0 mg/dl (70-99(Fasting)); Potassium 3.5 mmol/L (3.5-5.1); Sodium 140.0 mmol/L (136-145)
--- NOTE | 2025-05-01 08:36 | Urology Progress Note ---
Date of Service May 01, 2025 Assessment & Plan (1) Hydronephrosis with obstructing calculus: Plan: 44-year-old male admitted for right flank pain secondary to an obstructing right ureteral stone. POD #1 status post right ureteroscopy and stone treatment, right ureteral stent left on a tether iPad translation used for communication Patient afebrile and hemodynamically stable Labs reviewedcreatinine 0.88, WBC 9.32, hemoglobin 15.5 He is tolerating right ureteral stent with minimal bother Reviewed expectations with stent Reviewed that his right ureteral stone was treated and next step is stent removal Patient can remove tethered stent 2 to [address] Bernardo Continue supportive care and medical management per hospital medicine service Patient to be discharged from standpoint when medically ready will sign off, please contact our service with any additional questions or concerns Admission and Anticipated Discharge Date Admission Date: April 28, 2025 Subjective Patient seen and examined at bedside this morning. 2 guards present. Patient awake and resting in bed. iPad translation utilized. Patient generally feeling okay. No flank pain. He is voiding. Notes mild discomfort with voiding and some hematuria. No fever or chills. No nausea or vomiting. Reports constipation. Review of Systems Constitutional: as per Subjective / HPI Genitourinary: + as per Subjective / HPI Physical Exam Constitutional: well developed and well nourished; no acute distress Respiratory: normal respiratory effort; no respiratory distress and no labored breathing Gastrointestinal (Abdomen): Inspection/Auscultation: abdomen normal to inspection Musculoskeletal: Head/Neck/Chest: normocephalic Neurologic: moves all extremities and awake Psychiatric: Orientation: alert and oriented x 3 Results & Data Vital Signs (Past 12 Hours) Vital Signs Temp Pulse Resp BP Pulse Ox O2 Del Method 05/01/25 07:29 36.7 C 85 16 132/82 96 05/01/25 03:22 36.7 C 64 18 114/72 98 Room Air 04/30/25 22:30 36.7 C 66 16 115/74 96 Room Air PG Care Time/CCT Total # of Minutes Spent Total Time Spent with Patient: Total time spent is greater than 50% in coordination of care (as documented) at patient's floor/unit and/or counseling patient: Coding Level of Care Code 51157 SUB INP/OBS CARE 2/35MIN Diagnoses Hydronephrosis with obstructing calculus N13.2
--- NOTE | 2025-05-01 10:52 | Hospitalist Progress Note ---
Date of Service May 01, 2025 Assessment & Plan (1) Hydronephrosis with obstructing calculus: Plan: Right Ureteral calculus Obstructive uropathy --CT ABD:Right-sided obstructive uropathy secondary to a 0.5 cm proximal right ureteral calculus. --S/P Cystoscopy with Right Ureteroscopy, Laser Lithotripsy, retrograde pyelogram, ureteral dilation, and right Stent Placement(Right) by Dr. Bernardo on 04/30/2025 Continue IV fluids, Flomax Empirically on IV Rocephin Appreciate urology input Plan to transition to oral antibiotics on discharge to complete 5-day course postprocedure as recommended by urology Plan to discharge today Needs follow-up with urology for stent removal Bilateral hydrocele Follow-up as outpatient Prediabetes HbA1c 5.7 Situational hypertension Likely due to pain Blood pressure stable today Monitor DVT Px: SCDs re: possible procedure CODE STATUS Full code Admission and Anticipated Discharge Date Admission Date: April 28, 2025 Subjective Patient is seen and examined at bedside States feeling better today Dizziness, headache resolved Has minimal stent discomfort with urination Denies any chest pain, dyspnea, nausea, vomiting No other complaints Review of Systems Review of Systems: All systems reviewed & are unremarkable except as noted in Subjective Physical Exam Physical Exam: Physical Exam: Vitals signs as noted above General Appearance:Moderately built and nourished, no apparent distress Head: normocephalic, Atraumatic Eyes: normal inspection, EOMI Neck: supple, Trachea midline Respiratory/Chest: Normal breath sounds, CTA, No accessory muscle use Cardiovascular: S1, S2, No murmur Abdomen/GI:Soft, Non tender, Bowel sounds present Extremities/Musculoskeletal:normal inspection, no edema Neurologic/Psych:AAOX3, grossly no focal neurological deficits Skin: normal color, warm Results & Data Results & Data Vital Signs (Past 12 Hours) Vital Signs Temp Pulse Resp BP Pulse Ox O2 Del Method 05/01/25 07:29 36.7 C 85 16 132/82 96 05/01/25 03:22 36.7 C 64 18 114/72 98 Room Air Laboratory Results Short CBC 05/01/25 Range/Units 07:24 WBC 9.32 (4.8-10.8) K/ul Hgb 15.5 (14.0-18.0) g/dL Hct 43.7 (42.0-52.0) % Plt Count 218 (130-400) K/uL BMP 05/01/25 07:24 Sodium 140 Potassium 3.5 Chloride 103 Carbon Dioxide 28 BUN 10 Creatinine 0.88 Glucose 101 H Calcium 9.2
--- NOTE | 2025-05-01 11:09 | Discharge Summary ---
Date of Service May 01, 2025 Admission HPI Per Admitting Provider History obtained from patient and records. History obtained from patient via online therapeutic specialist line. No significant medical history. Patient is a resident of [place] who was admitted at the [facility] 4 days ago. This afternoon, patient noted achy lower abdominal pain going to his scrotum. No fever, no chills. No hematuria. No chest pain, no SOB. No headache. No prior episodes. SBP 1 50-1 60s as per medical staff. 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, [place] Admission Exam Per Admitting Provider GENERAL: Slightly uncomfortable, pleasant, no respiratory distress SKIN: Normal color, warm HEENT: [place] palpebral conjunctivae, no ptosis, dry buccal mucosa NECK : Supple, no tenderness CHEST : CTA, no tenderness HEART : RRR, no obvious murmurs ABDOMEN: Some distention, hypogastric tenderness EXTREMITIES : No LE swelling/tenderness, palpable pulses, no other conspicuous deformities noted NEUROLOGIC : Coherent, no facial asymmetry, no other gross focality Principal Diagnosis Right Ureteral calculus Obstructive uropathy Bilateral hydrocele Discharge Exam Physical Exam: Vitals signs as noted above General Appearance:Moderately built and nourished, no apparent distress Head: normocephalic, Atraumatic Eyes: normal inspection, EOMI Neck: supple, Trachea midline Respiratory/Chest: Normal breath sounds, CTA, No accessory muscle use Cardiovascular: S1, S2, No murmur Abdomen/GI:Soft, Non tender, Bowel sounds present Extremities/Musculoskeletal:normal inspection, no edema Neurologic/Psych:AAOX3, grossly no focal neurological deficits Skin: normal color, warm Discharge Data Allergies Allergy/AdvReac Type Severity Reaction Status Date / Time No Known Allergies Allergy Verified 04/28/25 20:32 Consultations 04/28/25 20:32 ED Decision to Admit Stat 04/28/25 22:07 Consult Urology Routine Procedures Performed Operation Date: 04/30/25 09:10 Actual Procedures p Cystoscopy, Right Ureteronephroscopy, Right Retrograde Pyelogram, Laser Lithotripsy,(Right) - River Bernardo DO s Right Stent Placement(Right) - River H. Bernardo, DO Ordered Studies Laboratory Results WBC 9.32 K/ul (4.8-10.8) 05/01/25 07:24 RBC 5.09 M/uL (4.70-6.10) 05/01/25 07:24 Hgb 15.5 g/dL (14.0-18.0) 05/01/25 07:24 Hct 43.7 % (42.0-52.0) 05/01/25 07:24 MCV 85.9 fL (80.0-100.0) 05/01/25 07:24 MCH 30.5 pg (25.0-34.0) 05/01/25 07:24 MCHC 35.5 g/dL (32.0-36.0) 05/01/25 07:24 RDW Std Deviation 38.4 fL (36.4-46.3) 05/01/25 07:24 RDW Coeff of Shaan 12.2 % (11.5-14.5) 05/01/25 07:24 Plt Count 218 K/uL (130-400) 05/01/25 07:24 MPV 10.1 fL (9.4-12.4) 05/01/25 07:24 Immature Gran % (Auto) 0.1 % 04/29/25 06:21 Neut % (Auto) 53.8 % 04/29/25 06:21 Lymph % (Auto) 33.7 % 04/29/25 06:21 [place] % (Auto) 9.7 % 04/29/25 06:21 Eos % (Auto) 2.1 % 04/29/25 06:21 Baso % (Auto) 0.6 % 04/29/25 06:21 Neut # (Auto) 4.28 K/uL (1.40-6.50) 04/29/25 06:21 Lymph # (Auto) 2.68 K/uL (1.20-3.40) 04/29/25 06:21 [place] # (Auto) 0.77 K/uL (0.11-0.59) H 04/29/25 06:21 Eos # (Auto) 0.17 K/uL (0.00-0.50) 04/29/25 06:21 Baso # (Auto) 0.05 K/uL (0.00-0.20) 04/29/25 06:21 Immature Gran # (Auto) 0.01 K/uL (0.01-0.20) 04/29/25 06:21 Sodium 140 mmol/L (136-145) 05/01/25 07:24 Potassium 3.5 mmol/L (3.5-5.1) 05/01/25 07:24 Chloride 103 mmol/L (98-107) 05/01/25 07:24 Carbon Dioxide 28 mmol/L (21-32) 05/01/25 07:24 Anion Gap 9 (3-11) 05/01/25 07:24 BUN 10 mg/dl (6-23) 05/01/25 07:24 Creatinine 0.88 mg/dl (0.6-1.4) 05/01/25 07:24 Est Cr Clr Drug Dosing 117.7 ml/min 05/01/25 07:24 eGFR 107.40 05/01/25 07:24 BUN/Creatinine Ratio 11.4 (10-20) 05/01/25 07:24 Glucose 101 mg/dl (70-99(Fasting)) H 05/01/25 07:24 Estimat Average Glucose 117 mg/dl 04/29/25 06:21 Hemoglobin A1c 5.7 % (4.5-5.6) H 04/29/25 06:21 Calcium 9.2 mg/dl (8.6-10.3) 05/01/25 07:24 Total Bilirubin 1.2 mg/dl (0.2-1.0) H 04/28/25 19:15 AST 19 U/L (13-39) 04/28/25 19:15 ALT 21 U/L (7-52) 04/28/25 19:15 Alkaline Phosphatase 72 U/L (34-104) 04/28/25 19:15 Total Protein 7.8 gm/dl (6.0-8.3) 04/28/25 19:15 Albumin 4.3 gm/dl (3.4-5.0) 04/28/25 19:15 Globulin 3.5 gm/dl (2.5-4.0) 04/28/25 19:15 Albumin/Globulin Ratio 1.2 (0.9-2) 04/28/25 19:15 Lipase 38 U/L (11-82) 04/28/25 19:15 Urine Color Yellow 04/28/25 20:53 Urine Appearance Turbid (Clear) A 04/28/25 20:53 Urine pH 5.5 (4.5-7.5) 04/28/25 20:53 Ur Specific [place] > 1.045 (1.000-1.030) H 04/28/25 20:53 Urine Protein 1+ (Negative) H 04/28/25 20:53 Urine Glucose (UA) Negative (Negative) 04/28/25 20:53 Urine Ketones 3+ (Negative) H 04/28/25 20:53 Urine Blood 3+ (Negative) H 04/28/25 20:53 Urine Nitrite Negative (Negative) 04/28/25 20:53 Urine Bilirubin Negative (Negative) 04/28/25 20:53 Urine Urobilinogen Negative (Negative) 04/28/25 20:53 Ur Leukocyte Esterase Negative (Negative) 04/28/25 20:53 Urine WBC (Auto) 6-10 /hpf (0-5) H 04/28/25 20:53 Urine RBC (Auto) >20 /hpf (0-2) H 04/28/25 20:53 U Hyaline Cast (Auto) 0-2 /lpf (0-2) 04/28/25 20:53 U Epithel Cells (Auto) 0-2 /hpf (0-2) 04/28/25 20:53 Urine Bacteria (Auto) None Seen (None Seen) 04/28/25 20:53 Calcium Oxalate Crystal Present (None Prsent) A 04/28/25 20:53 Urine Comment 04/28/25 20:53 Nasal Screen MRSA (PCR) Negative (Negative) 04/28/25 23:00 Impressions Scrotum Ultrasound 04/28/25 19:14 Exam(s): US SCROTAL EXAM: US Scrotum CLINICAL HISTORY: Reason for exam: right sided pain. OTHER: Other Notes: Non specific right sided testicular pain. Rt testicle 4.0 x 2.2 x 2.6 cm w/flow. small hydrocele. Lt testicle 3.9 x 2.2 x 2.8 cm w/flow. Larger hydrocele with debris. Epi head cyst 0.2 cm. TECHNIQUE: Real-time ultrasound of the scrotum with color Doppler and image documentation. COMPARISON: No relevant prior studies available. FINDINGS: Right testicle: Unremarkable. No mass. No torsion. Left testicle: Unremarkable. No mass. No torsion. Epididymides: Unremarkable. Scrotum: Left hydrocele with internal debris. Small right hydrocele. IMPRESSION: Bilateral hydroceles [id number] Electronically signed by: Isreal Kline MD 04/28/25 20:31 PM Abdomen/Pelvis CT 04/28/25 19:15 Exam(s): CT ABDOMEN + PELVIS With Contrast IV Amt: 93ML OPTIRAY 320 EXAM: CT Abdomen and Pelvis With Intravenous Contrast CLINICAL HISTORY: Reason for exam: right flank pain. TECHNIQUE: Axial computed tomography images of the abdomen and pelvis with intravenous contrast. CTDI is 25.45 mGy and DLP is 1389.29 mGy-cm. Automated exposure control was utilized for the study. A dose lowering technique was utilized adhering to the principles of ALARA. CONTRAST: Patient received 93ML OPTIRAY 320 of IV contrast COMPARISON: No relevant prior studies available. FINDINGS: Lung bases: Unremarkable. No mass. No consolidation. ABDOMEN: Liver: Hepatic steatosis. Gallbladder and bile ducts: Unremarkable. No calcified stones. No ductal dilation. Pancreas: Unremarkable. No mass. No ductal dilation. Spleen: Unremarkable. No splenomegaly. Adrenals: Unremarkable. No mass. Kidneys and ureters: Right-sided hydroureteronephrosis secondary to a 0.6 cm proximal right ureteral calculus with periureteral and perinephric stranding. Stomach and bowel: Unremarkable. No obstruction. No mucosal thickening. PELVIS: Appendix: No findings to suggest acute appendicitis. Bladder: Unremarkable. No mass. Reproductive: Unremarkable as visualized. ABDOMEN and PELVIS: Intraperitoneal space: Unremarkable. No free air. No significant fluid collection. Bones/joints: No acute fracture. No dislocation. Soft tissues: Unremarkable. Vasculature: Unremarkable. No abdominal aortic aneurysm. Lymph nodes: Unremarkable. No enlarged lymph nodes. IMPRESSION: Right-sided obstructive uropathy secondary to a 0.5 cm proximal right ureteral calculus. Electronically signed by: Isreal Kline MD 04/28/25 21:04 PM Retrograde Pyelogram 04/30/25 00:00 FL retrograde includes kub CLINICAL HISTORY: ADD ON RETROGRADE COMPARISON STUDY: None FLUOROSCOPY TIME: 96 seconds FLUOROSCOPY IMAGES: 13 EXPOSURE DOSE: 27 mGy FINDINGS: Fluoroscopy was provided for urologic procedure. IMPRESSION: Intraoperative fluoroscopy. ACT 112: Negative or not required by law. Electronically signed by: Lito Daly M.D. 04/30/2025 10:34 AM Hospital Course (1) Hydronephrosis with obstructing calculus: Right Ureteral calculus Obstructive uropathy --CT ABD:Right-sided obstructive uropathy secondary to a 0.5 cm proximal right ureteral calculus. --S/P Cystoscopy with Right Ureteroscopy, Laser Lithotripsy, retrograde pyelogram, ureteral dilation, and right Stent Placement(Right) by Dr. Bernardo on 04/30/2025 Continue IV fluids, Flomax Empirically on IV Rocephin Appreciate urology input Plan to transition to oral antibiotics on discharge to complete 5-day course postprocedure as recommended by urology Plan to discharge today Needs follow-up with urology for stent removal Bilateral hydrocele Follow-up as outpatient Prediabetes HbA1c 5.7 Situational hypertension Likely due to pain Blood pressure stable today Monitor DVT Px: SCDs re: possible procedure CODE STATUS Full code Total Time Total Time Spent Total Time Spent (In Minutes): 45 minutes Discharge Plan Discharge Items [facility]position[facility] Reason For Visit: OBSTRUCTIVE UROPATHY Discharge Diagnosis: Right Ureteral calculus Obstructive uropathy Bilateral hydrocele Condition on Discharge: Fair Activity: Per Instructions section Exercise/Sports: Gradually increase as tolerated Non-emergency contact: Primary Care Provider and Urologist Call non-emergency contact if: you have any medication questions, your symptoms worsen, your pain is concerning for you and you have a fever Follow-up/Referrals: [facility] [Primary Care Provider] - Diet: Regular Addtl Attending Provider Instructions: --Follow-up with your primary care physician in 1 week --Follow-up with your urologist for stent removal as recommended --Follow-up with your general surgeon for further evaluation of hydrocele -- Complete the antibiotic course ciprofloxacin as prescribed Seek immediate medical attention if your symptoms reoccur or worsen Please review medication list provided on discharge for any medication changes as instructed. Please call if you have any questions or problems. You can reach a [facility] hospitalist on duty at [facility] 24 hours a day by calling [phone] Pending Studies at Discharge: No Stand-Alone Forms: My [facility] Skilled Items Patient informed of condition?: Yes Discharge Level of Care: Other Communicable Disease: No Discharge Prognosis: Improving Lines: None Urinary Catheter: No Medications and DC Order Prescriptions: New tamsulosin 0.4 mg Capsule 0.4 mg PO HS Qty: 30 0RF phenazopyridine [Pyridium] 100 mg tablet 100 mg PO Q8H PRN (Reason: pain) Qty: 30 0RF ciprofloxacin HCl 500 mg tablet 500 mg PO BID Qty: 10 0RF Discharge Orders: Discharge Order (Routine); Ordered 05/01/25 Ordered By: Aron Alarcon Admission Data Admit Date/Time: 04/28/25 21:21 Attending Provider: Aron Alarcon Admit Provider: Dinesh Dueñas Primary Care Provider: [facility] Other Providers: Dinesh Dueñas; Xander Arevalo; Hawa Herman; River Bernardo; Mónica Covarrubias; Nina Tinoco; Miguelangel Neff; Sara More; Gerber Hill; Amy Washington; Joel Aguirre; Walt Sharma
[2025-05-01 12:33] VITALS: BP 128/82; PULSE 76; RESP 14; TEMP 98.6; O2SAT 97
== END 2025-05-01 14:44 | DRG 661 ==
LOC: ED 19:07 → 3W 21:21